=== PATIENT | male | born 1960 | race Caucasian/White ===

== ENCOUNTER 2017-11-12 17:29 | Emergency (ER) | payer MEDICAID ==
[~2017-11-12] VITALS: Ht 190.5 cm; Wt 78.0 kg
[~2017-11-12 17:29] MED LIST: CEPH-357 PO; FLUO20CA39 PO; FURO-150 PO; LISI-600 PO; LORA0.5T PO; NORCO10T PO; POTA10TA15 PO; RISP2TAB44 PO; VALP250C44 PO
[2017-11-12 17:30] VITALS: BP 164/127
[2017-11-12] MEDS ORDERED: HYDR-565 PO (19:08)
[2017-11-12] MEDS ORDERED: morphine 4 MG/ML inj SYRINge IM ONE (19:10)
[2017-11-12] MEDS ORDERED: HYDROcodone/acetaminophen 10/325mg tab PO ONE (19:10)
[2017-11-12] MEDS ORDERED: ketorolac trometh inj. 60 MG/2 ML VIAL IM ONE (19:10)
== END 2017-11-12 19:32 | disposition home or self-care (01) ==
LOC: ER 17:29
DX: M25.551 Pain in right hip (principal); M13.851 Other specified arthritis, right hip; G89.29 Other chronic pain; I10 Essential (primary) hypertension; Z98.890 Other specified postprocedural states; Z79.899 Other long term (current) drug therapy
CPT/HCPCS: 73502; 96372; 99284; J1885; J2270